=== PATIENT | male | born 1965 | race Two or more races ===

== ENCOUNTER 2019-06-09 10:56 | Emergency (ER) | payer MEDICAID ==
[~2019-06-09] VITALS: Ht 170.2 cm; Wt 77.1 kg
[2019-06-09] MEDS ORDERED: NKM (10:57)
--- NOTE | 2019-06-09 11:24 | NUR ---
ED Nurse Note: Patient in room ob. Await Dr review. Patient smells of alcohol. States he has back pain lower back. Primarily romansh speaker no reported trauma, fall, or mode of injury. Paramedics report patient homeless. Attempted mini go but patient refused will try again. Urine sample obtained. No visible blood in urine. Await review. Patient encourgaed to wait in room as wishing to wait outside. Patient orientated to appropriate conduct as stataing Im beautiful and gesturing kisses. Patient reurned to room. [place] and pillow provided for comfort.
[2019-06-09 11:30] VITALS: BP 147/84
--- NOTE | 2019-06-09 11:49 | Emergency Room Report ---
History of Present Illness General Chief Complaint: Lower Back Pain or Injury Source: Patient Present Illness HPI Disclaimer: Please note that this report is being documented using MROON technology. This can lead to erroneous entry secondary to incorrect interpretation by the dictating instrument. HPI: 53-year-old male with no reported medical history brought in by ambulance after found unconscious on someone's lawn. On arrival, he admitted to EMS and drinking alcohol though is complaining of severe lower back pain. He admits to drinking alcohol earlier in the day but reports only 2 beers. He does not recall any slip and fall today but states he fell 2 days ago. Denies head injury or loss of consciousness. He states he was originally unable to ambulate for about 1 day but is slowly been getting better. Denies numbness or tingling. He is now able to ambulate. No difficulty passing urine. PMH: Denies PSH: Denies Allergies: Denies Social Hx: Regular alcohol use Allergies: Coded Allergies: No Known Allergies (Unverified , 06/09/19) Nursing Documentation-PMH Past Medical History: No Stated History Review of Systems All Other Systems: negative except mentioned in HPI Physical Exam Vital Signs Date Time Temp Pulse Resp B/P (MAP) Pulse Ox O2 Delivery O2 Flow Rate FiO2 06/09/19 10:51 98.2 93 18 147/84 (105) 98 Room Air General: Awake and alert, no acute distress, mildly intoxicated but acting appropriately HEENT: NC/AT. EOMI. Cardiovascular: RRR. S1 and S2 normal. No murmur appreciated Resp: Normal work of breathing. No cough, wheezing or crackles appreciated Abdomen: Abdomen is soft, nondistended. Nontender Skin: Intact. No abrasions, laceration or rash over the exposed skin MSK: Normal tone and bulk. Moving all extremities. No obvious deformity. Neuro: Awake and alert. Mentating appropriately. Incision is intact over the dermatomes of the lower extremity. He is ambulating without difficulty. Back/Spine: No midline tenderness in the cervical spine. Very mild midline tenderness in the thoracic and lumbosacral spine without step-off or deformity. Most of the pain is paraspinal and in the mid scapular line in the lumbosacral region. Medical Decision Making Diagnostic Impression: Primary Impression: Low back pain Additional Impression: Alcohol intoxication ER Course 53-year-old male brought in by EMS for alcohol intoxication complaining of lower back pain. Differential includes was not limited to contusion, muscle spasm, ligamentous strain, spinous process fracture or compression fracture. I plan to obtain x-rays of the lumbosacral spine after my original evaluation however the patient absconded from the emergency department. While he does appear slightly intoxicated he was ambulating without difficulty and speaking in full sentences coherently. Did not appear significantly impaired. Last Vital Signs Date Time Temp Pulse Resp B/P (MAP) Pulse Ox O2 Delivery O2 Flow Rate FiO2 06/09/19 10:51 98.2 93 18 147/84 (105) 98 Room Air Disposition: ELOPED Condition: Stable Aguilar Durand MD Jun 09, 2019 11:49
--- NOTE | 2019-06-09 11:52 | NUR ---
ED Nurse Note: Patient reviewed by urine carlos ovalle to lab. On return to department patient seen leaving the department. Patient called by name but continued walking. informed. SANTOSH Ortega present in department whilst sample taken to lab. Medication prescribed but not administered. Unable to complete mini cog exam as patient now left. Homeless patient discharge planning checklist completed.
== END 2019-06-09 12:00 | disposition left against medical advice (07) ==
LOC: EDBD 10:56 → EMR 12:00
DX: M54.5 Low back pain (principal); F10.129 Alcohol abuse with intoxication, unspecified
CPT/HCPCS: 99282